=== PATIENT | female | born 1960 | race Two or more races ===

== ENCOUNTER 2016-10-18 19:25 | Emergency (ER) | payer OTHER, SELFPAY ==
--- NOTE | ~2016-10-18 | ER ---
PATIENT'S NAME: [facility] AGE: 56 Y [address] ROOM: [place] [id number] LOCATION: ED ADMIT DATE: 10/18/2016 ER/Outpatient Report DISCHARGE DATE: 10/18/2016 FAMILY PHYSICIAN: Van Sky MD ATTENDING PHYSICIAN: Ubaldo Bravo Time of Arrival: 1925 hours. Time of Evaluation: 1940 hours. CHIEF COMPLAINT: Not feeling well. HISTORY OF PRESENT ILLNESS: The patient is a 56-year-old female, who presents to the emergency department today with a chief complaint of not feeling well. She reports this started about 1 day prior to arrival. She has had some swelling and irritation to her nose with nasal congestion and nasal drainage. She has had some shortness of breath as well as chest pain. It is in the center of her chest. It is sharp. She is having a dry cough. Denies any ripping or tearing sensation. No radiation to the back. No history of PE or DVT. Denies any fevers or chills. Does have some nausea. No vomiting. No diarrhea or constipation. She also has some midepigastric abdominal pain. It is sharp, worse with touch. The patient denies any fevers or chills. PAST MEDICAL HISTORY: Hypertension and dyslipidemia. PAST SURGICAL HISTORY: Cholecystectomy. SOCIAL HISTORY: The patient denies any tobacco, alcohol, or illicit drug use. ALLERGIES: NO KNOWN DRUG ALLERGIES. MEDICATIONS: 1. Metoprolol. 2. Pravastatin. REVIEW OF SYSTEMS: All systems are reviewed by myself and negative with the exception of those discussed in the HPI and past medical history. PHYSICAL EXAMINATION: PATIENT'S NAME: [facility] AGE: 56 Y [address] ROOM: [place] [address] LOCATION: ED ADMIT DATE: 10/18/2016 ER/Outpatient Report DISCHARGE DATE: 10/18/2016 FAMILY PHYSICIAN: Van Sky MD ATTENDING PHYSICIAN: Ubaldo Bravo VITAL SIGNS: Weight 72 kg, blood pressure 211/97, pulse 116, respiratory rate 16, temperature 98.9, and oxygen saturation 96% on room air. GENERAL: The patient is a 56-year-old female, who appears as stated age, in no acute distress at this time. HEENT: Normocephalic and atraumatic. Pupils are equal, round, and reactive to light. NECK: Supple. There is no nuchal rigidity. CARDIOVASCULAR: Tachycardic. No murmurs, rubs, or gallops. LUNGS: Clear to auscultation bilaterally. No wheezes, rales, or rhonchi. ABDOMEN: Soft. Mild midepigastric tenderness to palpation. No rebound, rigidity, or guarding. Positive bowel sounds. MUSCULOSKELETAL: The patient ambulates with steady gait. Moves all 4 extremities. 5/5 muscle strength. SKIN: Warm and dry. There is no rashes or lesions noted. LABORATORY DATA AND X-RAYS: Labs and x-rays are obtained. Urinalysis is unremarkable. White blood cell count 12.3 and ANC of 11.9, otherwise unremarkable. Coags are normal. H. pylori is negative. D-dimer is normal. ProBNP is normal. EKG is obtained, it is interpreted by myself at 2033 hours, shows sinus tachycardia with a rate of 100, normal axis, normal interval; no ST elevation, ST depression, or T- wave inversions. Chest x-ray shows no acute process. CMP is unremarkable except for chloride of 111, CO2 of 19, creatinine 1.2, and glucose 161. LFTs normal. Magnesium is normal. Cardiac enzymes normal. A 2-hour cardiac enzymes are normal. A 2-hour EKG is obtained, it is also interpreted by myself, it is unremarkable. IMPRESSION: 1. Elevated blood pressure. 2. Chest pain, unclear etiology. 3. Initial visit. EMERGENCY DEPARTMENT COURSE: The patient brought back to the examination room. Seen and evaluated by myself. IV was established. Laboratory analysis and imaging are obtained as described above. The patient was given a liter of normal saline, 4 mg of Zofran IV, as well as a gram of Tylenol. She does report she has a headache. It is not the worst headache of her life, it was not thunderclap in nature. She does report that she took aspirin prior to arrival. She does complain of headache and is given 10 mg of Compazine IV as well as 50 mg of Benadryl IV. I have discussed results with the patient. Her daughter is interpreting, I have discussed and recommended getting an sparmaker. We both have an in-person sparmaker as well as the [employer] system. The family and the patient both report that they do not wish to have an sparmaker at this time. I have discussed results with the patient and 2 daughters who were at the bedside. Her headache has gone at this time. She has no chest pain at PATIENT'S NAME: [facility] AGE: 56 Y [address] ROOM: [place] [address] LOCATION: [facility] ADMIT DATE: 10/18/2016 ER/Outpatient Report DISCHARGE DATE: 10/18/2016 FAMILY PHYSICIAN: Van Sky MD ATTENDING PHYSICIAN: Ubaldo Barvo this time. Her blood pressure is down to the normal range, 109/47. I have discussed with her that the results and her request that she follows up with Dr. Van Sky in 2 days for reevaluation. I have discussed return to care instructions including worsening of symptoms or any other concerns, return to the emergency department as soon as possible. The patient is agreeable, daughters are agreeable, they are without further questions at this time. DISPOSITION: The patient discharged to home in good condition. DO SEBASTIEN RODRIGUEZ/modl /[id number] d: 10/19/16349 t: 10/22/16 190, OUTPATIENT REPORT
[2016-10-18 20:07] LABS: BILIRUBIN URINE NEGATIVE (NEGATIVE); BLOOD URINE NEGATIVE /UL (NEGATIVE); GLUCOSE URINE NEGATIVE (NEGATIVE); KETONE URINE NEGATIVE (NEGATIVE); LEUKOCYTES URINE NEGATIVE /UL (NEGATIVE); NITRITE URINE NEGATIVE (NEGATIVE); PROTEIN URINE NEGATIVE (NEGATIVE); UROBILINOGEN URINE NORMAL (NORMAL)
[2016-10-18 20:08] LABS: COLOR URINE STRAW (YELLOW); TURBIDITY URINE CLEAR (CLEAR)
[2016-10-18 20:16] LABS: HEMATOCRIT 45.1 % (33.0-46.0); HEMOGLOBIN 14.8 g/dL (10.0-15.0); MCHC 32.8 gm/dL (32.0-36.5); MCV 94.5 fl (83.0-98.0); PLATELET COUNT 333 K/uL (150-450); RBC 4.77 M/uL (3.50-5.50); RDW-CV 14.2 % (11.9-14.6); WBC 12.3 K/uL (4.0-11.0)
[2016-10-18 20:27] LABS: INR - (THERAPEUTIC) 0.92 (0.92-1.07); PROTIME 9.6 SECONDS (9.8-11.4); PTT 22 SECONDS (25-32)
[2016-10-18 20:37] LABS: ALBUMIN 3.4 gm/dL (3.5-5.0); ALK PHOS 67 IU/L (33-138); ALT 34 IU/L (12-78); ANION GAP 14.4 (10.0-19.0); AST 14 IU/L (10-40); BLOOD UREA NITROGEN 15 mg/dL (6-24); CALCIUM 8.4 mg/dL (8.5-10.5); CHLORIDE 111 mMol/L (96-110); CO2 19 mMol/L (22-32); CPK 91 IU/L (21-215); CREATININE 1.2 mg/dL (0.5-1.1); ESTIMATED GFR (MDRD EQUATION) 46; MAGNESIUM 2.3 mg/dL (1.8-2.6); POTASSIUM 4.4 mMol/L (3.7-5.1); SODIUM 140 mMol/L (135-145); TOTAL BILIRUBIN 0.2 mg/dL (0.0-1.5); TOTAL PROTEIN 6.8 g/dL (6.0-8.4)
[2016-10-18 21:09] LABS: ABSOLUTE NEUTROPHIL CT (ANC) 11.9 K/uL (1.8-7.8); BANDED NEUTROPHIL # 0.4 K/uL (0.0-0.1); BANDED NEUTROPHILS % 3 %; LYMPHOCYTE # 0.1 K/uL (0.8-4.0); LYMPHOCYTE % 1 %; MONOCYTE # 0.2 K/uL (0.0-1.0); SEGMENTED NEUTROPHIL # 11.6 K/uL (1.8-7.8); SEGMENTED NEUTROPHIL % 94 %
[2016-10-18 22:37] LABS: CPK 69 IU/L (21-215)
== END 2016-10-18 23:14 | disposition disaster alternative care site (69) ==
LOC: GMED 19:25
PROVIDERS: Emergency Medicine
DX: R07.9 Chest pain, unspecified (principal); I10 Essential (primary) hypertension; E78.5 Hyperlipidemia, unspecified; Z90.49 Acquired absence of other specified parts of digestive tract; Z79.899 Other long term (current) drug therapy
CPT/HCPCS: J0780; J1200; J2405; J7030